=== PATIENT | female | born 1945 | race Caucasian/White ===

== ENCOUNTER 2023-07-26 11:16 | Inpatient (IN) | payer MEDICARE, OTHER ==
[2023-07-26 11:44] LABS: #Basophils 0.1 thou/uL (0.0-0.2); #Monocytes 0.7 thou/uL (0.11-0.59); #Neutrophils 4.9 thou/uL (1.40-6.50); %Basophils 0.8 % (0.0-1.0); %Eosinophils 0.1 % (0.0-10.0); %Lymphocytes 23.1 % (21.0-51.0); %Monocytes 9.1 % (0.0-10.0); %Neutrophils 66.6 % (42.0-75.0); Hematocrit 48.5 % (36.0-47.0); Hemoglobin 15.9 g/dL (12.0-16.0); Mean Corpuscular HGB CONC 32.8 g/dL (32.0-36.0); Mean Corpuscular Hemoglobin 28.8 pg (27.0-31.0); Mean Corpuscular Volume 87.9 fl (78.0-98.0); Mean Platelet Volume 9.9 fL (7.4-10.4); Platelet Count 253 10x3/uL (130-400); Red Blood Cell (RBC) Count 5.52 mill/uL (4.20-5.40); White Blood Cell (WBC) Count 7.4 10x3/uL (4.8-10.8)
[2023-07-26 12:01] LABS: ALT (SGPT) 16 U/L (8-55); AST (SGOT) 24 U/L (5-34); Albumin 3.8 g/dL (3.4-4.8); Alkaline Phosphatase 69 U/L (40-110); Anion Gap 14 mmol/L (10-20); BUN (Urea Nitrogen) 20 mg/dL (9.8-20.1); Bilirubin, Total 0.9 mg/dL (0.2-1.2); Calc. Creatinine Clearance 0 mL/min (70-130); Calcium 9.8 mg/dL (7.8-10.44); Carbon Dioxide 27 mmol/L (23-31); Chloride 103 mmol/L (98-107); Estimated GFR 68; Globulin 3.4 g/dL (2.4-3.5); Glucose 109 mg/dL (83-110); Potassium 3.7 mmol/L (3.5-5.1); Protein, Total 7.2 g/dL (5.8-8.1); Sodium 140 mmol/L (136-145)
[2023-07-26 12:04] LABS: INR-International Normal Ratio 1.2; PTT 39.5 sec (22.9-36.1); Prothrombin Time 15.2 sec (12.0-14.7)
[2023-07-26 12:05] LABS: Troponin I 0.011 ng/mL (< 0.028)
[2023-07-26] MEDS ORDERED: Iopamidol-370 76% 500 ML MDV (1 ML CHARGE) ONE (12:55)
[2023-07-26] MEDS ORDERED: Acetaminophen 325 MG TAB PO PRN (15:16)
[2023-07-26] MEDS ORDERED: Ondansetron ODT 4 MG TAB PO PRN (15:16)
[2023-07-26 15:35] LABS: Troponin I Less than 0.010 ng/mL (< 0.028)
[2023-07-26] MEDS ORDERED: Enoxaparin 60 MG (0.6 mL) SYRINGE ONE (16:22)
[2023-07-26] MEDS ORDERED: Metoprolol Tartrate 5 MG (5 mL) VIAL IVP SCH (16:45)
[2023-07-26] MEDS ORDERED: Clopidogrel Bisulfate 300 MG TAB PO SCH (19:15)
[2023-07-26 20:21] LABS: Hemoglobin A1c 5.8 % (4.0-6.0)
[2023-07-26] MEDS ORDERED: Atorvastatin Calcium 40 MG TAB PO SCH ×2 (21:00)
[2023-07-26] MEDS ORDERED: Atenolol 50 MG TAB PO SCH (21:00)
[2023-07-27 01:17] VITALS: BMI 23.1
[2023-07-27] MEDS ORDERED: Enoxaparin 60 MG (0.6 mL) SYRINGE SC SCH (06:00)
[2023-07-27] MEDS: Levothyroxine Sodium 88 MCG TAB PO SCH (07:46)
[2023-07-27 08:31] LABS: #Basophils 0.1 thou/uL (0.0-0.2); #Eosinphils 0.1 thou/uL (0.0-0.7); #Monocytes 0.6 thou/uL (0.11-0.59); #Neutrophils 3.5 thou/uL (1.40-6.50); %Eosinophils 2.1 % (0.0-10.0); %Lymphocytes 26.4 % (21.0-51.0); %Monocytes 9.6 % (0.0-10.0); %Neutrophils 60.6 % (42.0-75.0); Hematocrit 48.9 % (36.0-47.0); Mean Corpuscular HGB CONC 32.7 g/dL (32.0-36.0); Mean Corpuscular Hemoglobin 28.5 pg (27.0-31.0); Mean Platelet Volume 10.5 fL (7.4-10.4); Platelet Count 209 10x3/uL (130-400); RBC Distribution Width 14.1 % (11.5-14.5); Red Blood Cell (RBC) Count 5.62 mill/uL (4.20-5.40); White Blood Cell (WBC) Count 5.7 10x3/uL (4.8-10.8)
[2023-07-27 08:51] LABS: ALT (SGPT) 16 U/L (8-55); AST (SGOT) 24 U/L (5-34); Albumin 3.7 g/dL (3.4-4.8); Alkaline Phosphatase 64 U/L (40-110); Anion Gap 17 mmol/L (10-20); BUN (Urea Nitrogen) 19 mg/dL (9.8-20.1); Bilirubin, Total 0.8 mg/dL (0.2-1.2); Calc. Creatinine Clearance 63 mL/min (70-130); Calcium 9.5 mg/dL (7.8-10.44); Carbon Dioxide 24 mmol/L (23-31); Cardiac Risk 5.2 (Less than 4.5); Chloride 107 mmol/L (98-107); Cholesterol 161 mg/dl (< 200 Desired); Estimated GFR 89; Globulin 3.2 g/dL (2.4-3.5); Glucose 86 mg/dL (83-110); HDL Cholesterol 31 mg/dL (>60 Neg Risk); LDL Cholesterol, Calculated 99 mg/dL; Potassium 3.9 mmol/L (3.5-5.1); Protein, Total 6.9 g/dL (5.8-8.1); Sodium 144 mmol/L (136-145); Triglycerides 155 mg/dL (Less than 150)
[2023-07-27] MEDS ORDERED: Clopidogrel Bisulfate 75 MG TAB PO SCH (09:00)
[2023-07-27] MEDS ORDERED: Clopidogrel Bisulfate 300 MG TAB PO SCH (09:00)
[2023-07-27] MEDS ORDERED: Aspirin 325 mg Enteric Coated Tablet PO SCH (09:00)
[2023-07-27] MEDS ORDERED: Metoprolol Tartrate 5 MG (5 mL) VIAL IVP SCH (09:15)
[2023-07-27] MEDS ORDERED: Atenolol 50 MG TAB PO SCH (11:15)
[2023-07-27] MEDS: Atorvastatin Calcium 40 MG TAB PO SCH (21:01)
[2023-07-27] MEDS: Atenolol 50 MG TAB PO SCH (21:02)
[2023-07-28] MEDS: Levothyroxine Sodium 88 MCG TAB PO SCH (05:19)
[2023-07-28 08:18] LABS: #Basophils 0.1 thou/uL (0.0-0.2); #Monocytes 0.5 thou/uL (0.11-0.59); #Neutrophils 3.1 thou/uL (1.40-6.50); %Eosinophils 0.8 % (0.0-10.0); %Lymphocytes 25.7 % (21.0-51.0); %Monocytes 10.7 % (0.0-10.0); %Neutrophils 61.8 % (42.0-75.0); Hematocrit 48.6 % (36.0-47.0); Mean Corpuscular HGB CONC 32.9 g/dL (32.0-36.0); Mean Corpuscular Hemoglobin 28.9 pg (27.0-31.0); Mean Corpuscular Volume 87.9 fl (78.0-98.0); Mean Platelet Volume 10.9 fL (7.4-10.4); Platelet Count 209 10x3/uL (130-400); Red Blood Cell (RBC) Count 5.53 mill/uL (4.20-5.40); White Blood Cell (WBC) Count 5.1 10x3/uL (4.8-10.8)
[2023-07-28 08:46] LABS: Prothrombin Time 13.5 sec (12.0-14.7)
[2023-07-28 08:47] LABS: PTT 29.5 sec (22.9-36.1)
[2023-07-28] MEDS ORDERED: Clopidogrel Bisulfate 75 MG TAB PO SCH (09:00)
[2023-07-28] MEDS: Atenolol 50 MG TAB PO SCH (09:25)
[2023-07-28] MEDS ORDERED: dilTIAZem CD 180 MG CAP PO SCH (12:15)
[2023-07-28] MEDS: Lactated Ringer's 1,000 ML IV SCH (17:04)
[2023-07-28 17:18] LABS: ALT (SGPT) 16 U/L (8-55); AST (SGOT) 23 U/L (5-34); Albumin 3.9 g/dL (3.4-4.8); Alkaline Phosphatase 59 U/L (40-110); Anion Gap 9 mmol/L (10-20); BUN (Urea Nitrogen) 21 mg/dL (9.8-20.1); Bilirubin, Total 0.7 mg/dL (0.2-1.2); Calc. Creatinine Clearance 57 mL/min (70-130); Calcium 9.7 mg/dL (7.8-10.44); Carbon Dioxide 25 mmol/L (23-31); Chloride 107 mmol/L (98-107); Estimated GFR 81; Globulin 2.8 g/dL (2.4-3.5); Glucose 101 mg/dL (83-110); Potassium 4.2 mmol/L (3.5-5.1); Protein, Total 6.7 g/dL (5.8-8.1); Sodium 137 mmol/L (136-145)
[2023-07-28] MEDS: Atorvastatin Calcium 40 MG TAB PO SCH (21:57)
[2023-07-29] MEDS: Levothyroxine Sodium 88 MCG TAB PO SCH (05:15)
[2023-07-29] MEDS: Lactated Ringer's 1,000 ML IV SCH ×3 (05:17→23:52)
[2023-07-29] MEDS: dilTIAZem CD 180 MG CAP PO SCH (11:33)
[2023-07-29] MEDS: Atorvastatin Calcium 40 MG TAB PO SCH (20:33)
[2023-07-30 06:31] LABS: #Basophils 0.1 thou/uL (0.0-0.2); #Monocytes 0.5 thou/uL (0.11-0.59); #Neutrophils 2.6 thou/uL (1.40-6.50); %Basophils 1.2 % (0.0-1.0); %Eosinophils 0.2 % (0.0-10.0); %Lymphocytes 26.9 % (21.0-51.0); %Monocytes 10.4 % (0.0-10.0); %Neutrophils 61.1 % (42.0-75.0); Hematocrit 40.7 % (36.0-47.0); Hemoglobin 13.3 g/dL (12.0-16.0); Mean Corpuscular HGB CONC 32.7 g/dL (32.0-36.0); Mean Corpuscular Hemoglobin 28.7 pg (27.0-31.0); Mean Corpuscular Volume 87.7 fl (78.0-98.0); Platelet Count 171 10x3/uL (130-400); RBC Distribution Width 13.7 % (11.5-14.5); Red Blood Cell (RBC) Count 4.64 mill/uL (4.20-5.40); White Blood Cell (WBC) Count 4.3 10x3/uL (4.8-10.8)
[2023-07-30 07:04] LABS: Anion Gap 12 mmol/L (10-20); BUN (Urea Nitrogen) 9 mg/dL (9.8-20.1); Calc. Creatinine Clearance 72 mL/min (70-130); Calcium 9.2 mg/dL (7.8-10.44); Carbon Dioxide 26 mmol/L (23-31); Chloride 107 mmol/L (98-107); Estimated GFR 92; Glucose 88 mg/dL (83-110); Potassium 3.8 mmol/L (3.5-5.1); Sodium 141 mmol/L (136-145)
[2023-07-30] MEDS: dilTIAZem CD 180 MG CAP PO SCH (10:25)
[2023-07-30] MEDS: Levothyroxine Sodium 88 MCG TAB PO SCH (10:27)
[2023-07-30] MEDS: Lactated Ringer's 1,000 ML IV SCH (10:28)
[2023-07-30] MEDS ORDERED: Losartan 25 MG TAB PO SCH (11:45)
[2023-07-30] MEDS: Atorvastatin Calcium 40 MG TAB PO SCH (21:27)
[2023-07-31] MEDS: Levothyroxine Sodium 88 MCG TAB PO SCH (05:40)
[2023-07-31] MEDS ORDERED: FLU VACC QS2023(65UP)/MF59C/PF 60 MCG/0.5 ML SYRINGE IM ONE (09:00)
[2023-07-31] MEDS: Losartan 25 MG TAB PO SCH (09:17)
[2023-07-31] MEDS: dilTIAZem CD 180 MG CAP PO SCH (09:18)
[2023-07-31] MEDS: Apixaban 2.5 MG TAB PO SCH (20:47)
[2023-07-31] MEDS: Atorvastatin Calcium 40 MG TAB PO SCH (20:47)
[2023-08-01 04:43] LABS: #Basophils 0.1 thou/uL (0.0-0.2); #Monocytes 1.1 thou/uL (0.11-0.59); #Neutrophils 6.6 thou/uL (1.40-6.50); %Basophils 0.5 % (0.0-1.0); %Eosinophils 0.1 % (0.0-10.0); %Lymphocytes 35.1 % (21.0-51.0); %Monocytes 9.3 % (0.0-10.0); %Neutrophils 54.7 % (42.0-75.0); Hemoglobin 16.2 g/dL (12.0-16.0); Mean Corpuscular HGB CONC 33.1 g/dL (32.0-36.0); Mean Corpuscular Hemoglobin 28.8 pg (27.0-31.0); Mean Corpuscular Volume 87.2 fl (78.0-98.0); Mean Platelet Volume 10.9 fL (7.4-10.4); Platelet Count 276 10x3/uL (130-400); RBC Distribution Width 13.6 % (11.5-14.5); Red Blood Cell (RBC) Count 5.62 mill/uL (4.20-5.40); White Blood Cell (WBC) Count 12.1 10x3/uL (4.8-10.8)
[2023-08-01 05:00] LABS: Calcium 10.2 mg/dL (7.8-10.44); Chloride 105 mmol/L (98-107); Potassium 3.2 mmol/L (3.5-5.1); Sodium 140 mmol/L (136-145)
[2023-08-01 05:01] LABS: Glucose 164 mg/dL (83-110)
[2023-08-01 05:02] LABS: Anion Gap 15 mmol/L (10-20); Carbon Dioxide 23 mmol/L (23-31); INR-International Normal Ratio 1.1; Prothrombin Time 13.7 sec (12.0-14.7)
[2023-08-01 05:03] LABS: PTT 31.5 sec (22.9-36.1)
[2023-08-01 05:04] LABS: Calc. Creatinine Clearance 55 mL/min (70-130); Estimated GFR 78
[2023-08-01 05:05] LABS: BUN (Urea Nitrogen) 12 mg/dL (9.8-20.1)
[2023-08-01 05:10] LABS: ALT (SGPT) 36 U/L (8-55); AST (SGOT) 38 U/L (5-34); Albumin 4.4 g/dL (3.4-4.8); Alkaline Phosphatase 81 U/L (40-110); Bilirubin, Total 0.9 mg/dL (0.2-1.2); Globulin 3.3 g/dL (2.4-3.5); Protein, Total 7.7 g/dL (5.8-8.1)
[2023-08-01] MEDS: Levothyroxine Sodium 88 MCG TAB PO SCH (05:58)
[2023-08-01 06:43] LABS: Phosphorus 3.4 mg/dL (2.3-4.7)
[2023-08-01 06:45] LABS: Magnesium 1.9 mg/dL (1.6-2.6)
[2023-08-01] MEDS ORDERED: Potassium Chloride 20 MEQ TAB PO SCH (07:15)
[2023-08-01] MEDS: Apixaban 2.5 MG TAB PO SCH (10:08)
[2023-08-01] MEDS: Losartan 25 MG TAB PO SCH (10:11)
[2023-08-01] MEDS: dilTIAZem CD 180 MG CAP PO SCH (10:12)
[2023-08-01] MEDS ORDERED: Magnesium 2 GM/50 ML(in water) 2 GM in Premix 1 BAG IVPB SCH (11:30)
[2023-08-01 15:38] VITALS: BP 135/61; TEMP 98
[2023-08-02 17:31] LABS: Campy jejuni + coli by PCR Negative (Negative); STEC Shiga Toxin 1+2 Negative (Negative); Salmonella spp. by PCR Negative (Negative); Shigella spp + EIEC by PCR Negative (Negative)
== END 2023-08-01 19:35 | DRG 65 ==
LOC: ERS 11:16 → ERHOLD 14:48 → 2SE 21:03 → OBSVTOIN 07-28 09:30
PROVIDERS: ADMIT Family Medicine; ATTEND Family Medicine
DX: I62.9 Nontraumatic intracranial hemorrhage, unspecified (principal); G81.91 Hemiplegia, unspecified affecting right dominant side; R47.01 Aphasia; E03.9 Hypothyroidism, unspecified; I10 Essential (primary) hypertension; R29.810 Facial weakness; I48.0 Paroxysmal atrial fibrillation; M19.90 Unspecified osteoarthritis, unspecified site; I07.1 Rheumatic tricuspid insufficiency; R19.7 Diarrhea, unspecified; Z79.899 Other long term (current) drug therapy; Z85.3 Personal history of malignant neoplasm of breast; Z85.850 Personal history of malignant neoplasm of thyroid; Z98.890 Other specified postprocedural states; Z87.891 Personal history of nicotine dependence; Z90.49 Acquired absence of other specified parts of digestive tract; Z90.710 Acquired absence of both cervix and uterus
CPT/HCPCS: 0042T; 36415; 36416; 70450; 70496; 70498; 70551; 71045; 80048; 80053; 80061; 83036; 83735; 84100; 84443; 84484; 85025; 85610; 85730; 87505; 93005; 93010; 93306; 94760; 96372; 96375; G0378; J1650; J3475; J7120; Q9967

== ENCOUNTER 2023-11-28 05:50 | Day surgery (SDC) | payer MEDICARE, OTHER ==
[2023-11-28 06:51] LABS: #Basophils 0.07 10x3/uL (0.0-0.2); #Eosinphils Less than 0.03 10x3/uL (0.0-0.7); %Lymphocytes 16.6 % (21.0-51.0); %Neutrophils 74.1 % (42.0-75.0); Hemoglobin 13.6 g/dL (12.0-16.0); Mean Corpuscular HGB CONC 30.9 g/dL (32.0-36.0); Mean Corpuscular Hemoglobin 25.7 pg (27.0-31.0); Mean Corpuscular Volume 83.2 fL (78.0-98.0); Mean Platelet Volume 10.4 fL (7.4-10.4); Platelet Count 241 10x3/uL (130-400); RBC Distribution Width 14.8 % (11.5-14.5); Red Blood Cell (RBC) Count 5.29 mill/uL (4.20-5.40)
[2023-11-28 07:13] LABS: Anion Gap 10 mmol/L (10-20); BUN (Urea Nitrogen) 17 mg/dL (9.8-20.1); Calc. Creatinine Clearance 0 mL/min (70-130); Calcium 9.9 mg/dL (7.8-10.44); Carbon Dioxide 27 mmol/L (23-31); Chloride 107 mmol/L (98-107); Estimated GFR 86; Glucose 101 mg/dL (83-110); Potassium 3.4 mmol/L (3.5-5.1); Sodium 141 mmol/L (136-145)
== END 2023-11-28 09:20 | disposition home or self-care (01) ==
LOC: SDC 05:50
PROVIDERS: ATTEND Internal Medicine Cardiovascular Disease
PROC: B246ZZ4 Ultrasonography of Right and Left Heart, Transesophageal (ICD-10-PCS; principal; 2023-11-28)
DX: I48.19 Other persistent atrial fibrillation (principal); I48.0 Paroxysmal atrial fibrillation
CPT/HCPCS: 80048; 85025; 93312

== ENCOUNTER 2024-04-21 06:26 | Day surgery (SDC) | payer MEDICARE, OTHER ==
[2024-04-20 10:04] VITALS: BMI 23.0
[2024-04-21] MEDS ORDERED: ePHEDrine Sulfate 50 MG/10 ML VIAL ONE (07:00)
[2024-04-21] MEDS ORDERED: Lidocaine 2% PF 5 ML VIAL ONE (07:01)
[2024-04-21] MEDS ORDERED: Propofol 500 MG/50 ML VIAL ONE (07:01)
== END 2024-04-21 09:43 | disposition home or self-care (01) ==
LOC: SDC 06:26
PROVIDERS: ATTEND Internal Medicine Cardiovascular Disease
PROC: B245ZZ4 Ultrasonography of Left Heart, Transesophageal (ICD-10-PCS; principal; 2024-04-21)
DX: I48.19 Other persistent atrial fibrillation (principal); Z95.818 Presence of other cardiac implants and grafts; Z96.653 Presence of artificial knee joint, bilateral; Z98.41 Cataract extraction status, right eye; Z98.42 Cataract extraction status, left eye; Z98.890 Other specified postprocedural states; Z90.11 Acquired absence of right breast and nipple; Z90.710 Acquired absence of both cervix and uterus; Z90.89 Acquired absence of other organs; Z79.82 Long term (current) use of aspirin; Z79.899 Other long term (current) drug therapy
CPT/HCPCS: 93312; J2704